=== PATIENT | female | born 1985 | race African-American/Black ===

== ENCOUNTER → 2019-04-04 07:47 | Outpatient (CLI) | payer OTHER, SELFPAY ==
--- NOTE | ~2019-04-04 | US_ITS ---
EXAMINATION: US breast BI limited HISTORY: Six-month follow-up for probably benign bilateral breast masses TECHNIQUE: Limited bilateral breast ultrasound is performed. COMPARISON: 09/20/2018 FINDINGS: Right breast: There is a stable 6 mm x 4 mm oval, circumscribed, parallel, hypoechoic mass with poste rior enhancement and no internal vascularity at the 12:00 location 3 cm from the nipple. There is an 8 mm x 5 mm oval, circumscribed, parallel, hypoechoic mass with posterior enhancement and no internal vascularity at the 1:00 location 1 cm from the nipple which is slightly increased in size. Left breast: There is a stable 5 mm x 3 mm oval, circumscribed, parallel, hypoechoic mass with no pos terior features or internal vascularity at the 4:00 location 4 cm from the nipple. There is a 5 mm x 3 mm oval, circumscribed, parallel, hypoechoic mass with no posterior features or internal vascularit y at the 5:00 location 4 cm from the nipple which is slightly decreased in size. IMPRESSION: Probably benign bilateral breast masses as detailed above. Follow-up bilateral targeted ultrasound in six months is recommended. BI-RADS category 3, probably benign findings. Reviewed, dictated and finalized at location A. TING CLERK
== END ==
PROVIDERS: PCP Family Medicine; Visit Provider Surgery
DX: R92.8 Other abnormal and inconclusive findings on diagnostic imaging of breast (principal)
CPT/HCPCS: 76642

== ENCOUNTER → 2019-10-13 07:52 | Outpatient (CLI) | payer OTHER, SELFPAY ==
--- NOTE | ~2019-10-13 | US_ITS ---
EXAMINATION: US breast BI limited HISTORY: Six-month follow-up for probably benign bilateral breast masses TECHNIQUE: Limited bilateral breast ultrasound was performed. COMPARISON: 04/04/2019, 09/20/2018 FINDINGS: Right breast: The previously described mass at the 12:00 location 3 cm from the nipple is no longer i dentified. There is a stable 7 mm x 6 mm oval, circumscribed, parallel, hypoechoic mass with posterio r acoustic enhancement and no internal vascularity at the 1:00 location 1 cm from the nipple. Left breast: There is a stable 5 mm x 2 mm oval, circumscribed, parallel, hypoechoic mass with no pos terior features or internal vascularity at 4:00 location 4 cm from the nipple. A 4 mm x 3 mm mass wit h similar sonographic features at the 5:00 location 4 cm from the nipple is slightly decreased in siz e. IMPRESSION: Probably benign bilateral breast masses as detailed above. Given interval stability for 12 months, ta rgeted bilateral breast ultrasound in 12 months is recommended. BI-RADS category 3, probably benign findings. Reviewed, dictated and finalized at location A. IMPRESSION: Probably benign bilateral breast masses as detailed above. Given interval stabi lity for 12 months, targeted bilateral breast ultrasound in 12 months is recomm ended. BI-RADS category 3, probably benign findings.
== END ==
PROVIDERS: PCP Family Medicine; Visit Provider Surgery
DX: N63.10 Unspecified lump in the right breast, unspecified quadrant (principal); N63.20 Unspecified lump in the left breast, unspecified quadrant
CPT/HCPCS: 76642

== ENCOUNTER → 2019-12-26 15:24 | Outpatient (CLI) | payer OTHER, SELFPAY ==
--- NOTE | ~2019-12-26 | US_ITS ---
US pelvic complete w TV DATE: 12/26/2019 15:56 INDICATION: Left lower quadrant pain TECHNIQUE: Real-time imaging via transabdominal and transvaginal approaches COMPARISON: None FINDINGS: The uterus measures approximately 6 cm height, 3 cm AP and 5 cm transverse dimension. The right ovary measures 4.3 x 2.6 x 3.7 cm, with evidence of vascular flow. The left ovary measures 3.1 x 2.3 x 2.1 cm, with vascular flow. Small fluid collection in the posterior cul-de-sac. IMPRESSION: No significant abnormality Reviewed, dictated and finalized at Location A. Reviewed, dictated and finalized at location A. RESEARCHER IMPRESSION: No significant abnormality
== END ==
PROVIDERS: PCP Family Medicine; Visit Provider Nurse Practitioner Family
DX: R10.32 Left lower quadrant pain (principal)
CPT/HCPCS: 76830; 76856

== ENCOUNTER 2020-03-12 15:58 | Outpatient (CLI) | payer OTHER, SELFPAY ==
[2020-03-12 18:01] LABS: Hepatitis B Surface Antigen Negative (Negative)
[2020-03-12 18:03] LABS: Hepatitis B Core IgM Result Negative (Negative)
[2020-03-12 18:23] LABS: Hepatitis B Surface Anti Res Positive
[2020-03-15 17:31] LABS: Hepatitis B Core Ab Total Nonreactive (Nonreactive)
== END 2020-03-12 15:59 | disposition home or self-care (01) ==
LOC: ANHLAB 15:59
PROVIDERS: PCP Family Medicine; Visit Provider Nurse Practitioner Obstetrics & Gynecology
DX: Z11.59 Encounter for screening for other viral diseases (principal)
CPT/HCPCS: 36415; 86704; 86705; 86706; 87340

== ENCOUNTER → 2020-04-06 10:27 | Outpatient (CLI) | payer OTHER, SELFPAY ==
--- NOTE | ~2020-04-06 | CT_ITS ---
EXAMINATION: CT abdomen pelvis wo con DATE: 04/06/2020 10:53 INDICATION: Left lower quadrant abdominal pain, periumbilical pain. History of appendectomy. TECHNIQUE: Computed tomography (CT) of the abdomen and pelvis was performed without intravenous contr ast. Automated exposure control and iterative reconstruction technique were employed. Exam dose: 315 .32 mGy-cm total exam DLP. COMPARISON: None. FINDINGS: The lung bases are clear of infiltrate or consolidation. Normal heart size. No pericardial or pleural effusion. The liver, gallbladder, bile ducts, spleen, pancreas, pancreatic duct, and adrenal glands and kidneys are unremarkable on this limited noncontrast examination. The urinary bladder, uterus and adnexal areas are unremarkable. Normal caliber of the abdominal aorta. No intraperitoneal or retroperitoneal or pelvic mass lesion or adenopathy or ascites. The appendix is absent. No bowel obstruction, bowel wall thickening, pneumatosis or intraperitoneal f ree air. Small fat-containing umbilical hernia. Included skeletal structures are unremarkable. IMPRESSION: Status post appendectomy; no significant abnormality Reviewed, dictated and finalized at Location A. Reviewed, dictated and finalized at location B. TRONIC WARFARE OPERATOR
== END ==
PROVIDERS: PCP Family Medicine; Visit Provider Family Medicine
DX: R10.9 Unspecified abdominal pain (principal); Z90.89 Acquired absence of other organs
CPT/HCPCS: 74176

== ENCOUNTER → 2021-02-18 09:02 | Outpatient (CLI) | payer OTHER, SELFPAY ==
[2021-02-18 21:23] LABS: SARS-CoV-2 RNA PCR Negative
== END ==
PROVIDERS: PCP Family Medicine; Visit Provider Nurse Practitioner Family
DX: R09.89 Other specified symptoms and signs involving the circulatory and respiratory systems (principal); Z20.822 Contact with and (suspected) exposure to COVID-19
CPT/HCPCS: C9803; U0003; U0005

== ENCOUNTER 2023-02-11 18:10 | Emergency (ER) | payer OTHER, SELFPAY ==
[2023-02-11 18:12] VITALS: BP 187/115; PULSE 77; RESP 16; TEMP 36.5; O2SAT 100
== END 2023-02-11 18:20 | disposition left against medical advice (07) ==
LOC: ANHED 18:37
PROVIDERS: PCP Family Medicine
DX: R51.9 Headache, unspecified (principal); Z53.21 Procedure and treatment not carried out due to patient leaving prior to being seen by health care provider
CPT/HCPCS: 99199

== ENCOUNTER 2023-02-12 12:24 | Emergency (ER) | payer OTHER, SELFPAY ==
[2023-02-12 12:27] VITALS: BP 154/119; PULSE 80; RESP 16; TEMP 36.6; O2SAT 100
--- NOTE | 2023-02-12 15:25 | PC.NURSE ---
pt seen leaving dept
== END 2023-02-12 15:25 | disposition left against medical advice (07) ==
PROVIDERS: PCP Family Medicine
DX: R51.9 Headache, unspecified (principal)
CPT/HCPCS: 99199

== ENCOUNTER 2023-10-29 11:54 | Outpatient (CLI) | payer OTHER, SELFPAY ==
[2023-10-29] VITALS (9 sets, daily range): BP systolic 139–162; BP diastolic 78–100; PULSE 78–95
[2023-10-29 12:33] LABS: Appearance Urine Clear (Clear); Bilirubin Urine Negative (Negative); Blood Urine Negative (Negative); Color Urine Yellow (Yellow); Glucose Urine UA Negative (Negative); Ketones Urine Negative (Negative); Leukocyte Esterase Ur Trace LEU/UL (Negative); Nitrate Urine Negative (Negative); Protein Urine Negative (Negative); Specific Grav Ur 1.018 (1.001-1.035)
[2023-10-29 12:34] LABS: Add Urine Microscopic? YES; Bacteria Urine None Seen /hpf; Non Pathogenic Casts 0-2; RBC Urine 0-2 /hpf (0-2); Squamous Epithelial Cell Urine None Seen /hpf (Few); WBC Urine 0-5 /hpf (0-3)
[2023-10-29 12:35] LABS: Basophils Absolute Auto 0.1 K/mm3 (0.0-0.1); Basophils Percent Auto 0.7 % (0.2-1.2); Eosinophils Absolute Auto 0.4 K/mm3 (0-0.3); Eosinophils Percent Auto 4.2 % (0-4.4); Hematocrit 34.5 % (37.0-47.0); Hemoglobin 11.4 g/dL (12.0-15.0); Immature Granulocyte Absolute 0.06 K/mm3 (0.00-0.031); Immature Granulocyte Percent A 0.7 % (0-0.5); Lymphocytes Absolute Auto 1.81 K/mm3 (0.9-3.2); Lymphocytes Percent Auto 21.1 % (18.3-44.2); Mean Corpuscular Hemoglobin 31.8 pg (26-34); Mean Corpuscular Volume 96.4 fl (80-100); Mean Platelet Volume 10.8 fl (7.4-10.4); Monocytes Absolute Auto 0.7 K/mm3 (0.1-0.6); Monocytes Percent Auto 7.9 % (2.6-8.5); Neutrophils Absolute Auto 5.6 K/mm3 (1.3-6.7); Neutrophils Percent Auto 65.4 % (45.5-73.1); Platelet Count Result 231 k/mm3 (150-375); Red Blood Count 3.58 M/mm3 (4.2-5.4); Red Cell Distribution Width 13.8 % (11.5-14.5); White Blood Count 8.6 K/mm3 (4.5-10.0)
[2023-10-29 12:47] LABS: Alanine Aminotransferase 15 U/L (6-35); Albumin Level 4.2 g/dL (3.5-5.1); Alkaline Phosphatase 63 U/L (38-126); Anion Gap 8 mmol/L (4-12); Aspartate Amino Transferase 25 U/L (14-36); Bilirubin,Total 0.3 mg/dL (0.2-1.3); Blood Urea Nitrogen 6 mg/dL (7-17); Calcium 9.1 mg/dL (8.4-10.2); Carbon Dioxide 24 mmol/L (22-30); Chloride 102 mmol/L (98-107); Estimated Glomerular Filt Rate > 60; Glucose 77 mg/dL (65-110); Sodium 134 mmol/L (137-145); Uric Acid 2.8 mg/dL (2.5-7.5)
[2023-10-29] MEDS: LABETALOL HCL 100 MG TABLET PO (13:05)
--- NOTE | 2023-10-29 13:36 | PC.NURSE ---
Dr. Gonzalez updated on recent blood pressures and lab results, orders receieved to give 30 Procardia XL.
[2023-10-29] MEDS: NIFEdipine 30 MG TAB.ER.24 PO (13:41)
[2023-10-29 14:07] LABS: Creatinine Urine 129.1 mg/dL
[2023-10-29 14:20] LABS: Total Protein Urine Random < 5 mg/dL; Ur Ttl Prot Creatinine Ratio < 0.04 mg/mg (0-0.20)
--- NOTE | 2023-10-29 14:53 | PC.NURSE ---
Dr. Gonzalez updated on current blood pressures, okay to discharge with 30 XL procardia once a day and increase dose to 200 Labetalol BID. Instructions given on when to return to hospital. FHR doppled in 150s.
== END 2023-10-29 14:50 | disposition home or self-care (01) ==
LOC: ANHOBOP 12:45 → ANHOBPP 12:45
PROVIDERS: PCP Family Medicine; Visit Provider Obstetrics & Gynecology
DX: O13.9 Gestational [pregnancy-induced] hypertension without significant proteinuria, unspecified trimester (principal); Z3A.00 Weeks of gestation of pregnancy not specified
CPT/HCPCS: 36415; 80053; 81001; 82570; 84156; 84550; 85025; 99199; A9270

== ENCOUNTER 2024-02-04 10:34 | Outpatient (CLI) | payer OTHER, SELFPAY ==
[2024-02-04] VITALS (9 sets, daily range): BP systolic 132–165; BP diastolic 81–110; PULSE 74–94
[2024-02-04 11:03] LABS: Basophils Absolute Auto 0.1 K/mm3 (0.0-0.1); Basophils Percent Auto 0.7 % (0.2-1.2); Eosinophils Absolute Auto 0.3 K/mm3 (0-0.3); Hematocrit 34.3 % (37.0-47.0); Hemoglobin 11.8 g/dL (12.0-15.0); Immature Granulocyte Absolute 0.03 K/mm3 (0.00-0.031); Immature Granulocyte Percent A 0.4 % (0-0.5); Lymphocytes Absolute Auto 1.52 K/mm3 (0.9-3.2); Lymphocytes Percent Auto 18.3 % (18.3-44.2); Mean Corpuscular HGB Conc 34.4 g/dl (32-36); Mean Corpuscular Hemoglobin 32.1 pg (26-34); Mean Corpuscular Volume 93.2 fl (80-100); Mean Platelet Volume 10.7 fl (7.4-10.4); Monocytes Absolute Auto 0.5 K/mm3 (0.1-0.6); Monocytes Percent Auto 5.9 % (2.6-8.5); Neutrophils Absolute Auto 5.9 K/mm3 (1.3-6.7); Neutrophils Percent Auto 71.7 % (45.5-73.1); Platelet Count Result 195 k/mm3 (150-375); Red Blood Count 3.68 M/mm3 (4.2-5.4); White Blood Count 8.3 K/mm3 (4.5-10.0)
[2024-02-04 11:12] LABS: Alanine Aminotransferase 14 U/L (6-35); Albumin Level 3.4 g/dL (3.5-5.1); Alkaline Phosphatase 85 U/L (38-126); Anion Gap 5 mmol/L (4-12); Aspartate Amino Transferase 25 U/L (14-36); Bilirubin,Total 0.5 mg/dL (0.2-1.3); Blood Urea Nitrogen 8 mg/dL (7-17); Calcium 8.9 mg/dL (8.4-10.2); Carbon Dioxide 19 mmol/L (22-30); Chloride 109 mmol/L (98-107); Estimated Glomerular Filt Rate > 60; Glucose 116 mg/dL (65-110); Sodium 133 mmol/L (137-145); Uric Acid 6.7 mg/dL (2.5-7.5)
[2024-02-04 11:17] LABS: Add Urine Microscopic? YES; Appearance Urine Cloudy (Clear); Bacteria Urine 4+ /hpf; Bilirubin Urine Negative (Negative); Blood Urine Negative (Negative); Color Urine Yellow (Yellow); Glucose Urine UA Negative (Negative); Ketones Urine Negative (Negative); Leukocyte Esterase Ur Trace LEU/UL (Negative); Need Manual Microscopic Reviewed; Nitrate Urine Negative (Negative); Non Pathogenic Casts 0-2; Protein Urine 1+ mg/dL (Negative); RBC Urine 0-2 /hpf (0-2); Specific Grav Ur 1.008 (1.001-1.035); Squamous Epithelial Cell Urine Occasional /hpf (Few); Urobilinogen Urine 0.2 mg/dL (<2.0); WBC Urine 21-50 /hpf (0-3); pH Urine 6.5 (5.0-9.0)
[2024-02-04] MEDS: NITROFURANTOIN MONOHYD MACROCR 100 MG CAP PO (11:36)
[2024-02-04] MEDS: NIFEdipine 10 MG CAPSULE 20 MG PO (11:36)
[2024-02-04] MEDS: LABETALOL HCL 100 MG TABLET PO (11:36)
[2024-02-04 12:04] LABS: Creatinine Urine 91.5 mg/dL; Total Protein Urine Random 31 mg/dL; Ur Ttl Prot Creatinine Ratio 0.34 mg/mg (0-0.20)
== END 2024-02-04 12:40 | disposition home or self-care (01) ==
LOC: ANHOBOP 10:40 → ANHOBPP 10:42
PROVIDERS: PCP Family Medicine; Visit Provider Obstetrics & Gynecology
DX: O13.9 Gestational [pregnancy-induced] hypertension without significant proteinuria, unspecified trimester (principal); Z3A.00 Weeks of gestation of pregnancy not specified
CPT/HCPCS: 36415; 80053; 81001; 82570; 84156; 84550; 85025; 87086; 99199; A9270

== ENCOUNTER 2024-02-06 09:39 | Outpatient (RCR) | payer OTHER, SELFPAY ==
[2024-02-05] MEDS: BETAMETHASONE SOD PHOS/ACETATE 30 MG/5 ML VIAL 12 MG IM (09:18)
[2024-02-06] MEDS: BETAMETHASONE SOD PHOS/ACETATE 30 MG/5 ML VIAL 12 MG IM (09:47)
== END 2024-05-05 23:59 | disposition home or self-care (01) ==
LOC: ANHOBOP 09:39
PROVIDERS: PCP Family Medicine; Visit Provider Obstetrics & Gynecology
DX: O36.8990 Maternal care for other specified fetal problems, unspecified trimester, not applicable or unspecified (principal); Z3A.00 Weeks of gestation of pregnancy not specified
CPT/HCPCS: 96372; J0702

== ENCOUNTER 2024-02-08 17:50 | Inpatient (IN) | payer OTHER, SELFPAY ==
[2024-02-08] VITALS (101 sets, daily range): BP systolic 146–182; BP diastolic 100–113; PULSE 67–110; RESP 16–18; TEMP 36.2; O2SAT 83–100; BMI 27.4
[2024-02-08 17:38] LABS: Basophils Absolute Auto 0.1 K/mm3 (0.0-0.1); Basophils Percent Auto 0.4 % (0.2-1.2); Eosinophils Absolute Auto 0.1 K/mm3 (0-0.3); Eosinophils Percent Auto 0.5 % (0-4.4); Hematocrit 36.9 % (37.0-47.0); Hemoglobin 12.2 g/dL (12.0-15.0); Immature Granulocyte Absolute 0.24 K/mm3 (0.00-0.031); Immature Granulocyte Percent A 1.9 % (0-0.5); Lymphocytes Absolute Auto 2.23 K/mm3 (0.9-3.2); Lymphocytes Percent Auto 18.1 % (18.3-44.2); Mean Corpuscular HGB Conc 33.1 g/dl (32-36); Mean Corpuscular Hemoglobin 31.4 pg (26-34); Mean Corpuscular Volume 94.9 fl (80-100); Mean Platelet Volume 10.6 fl (7.4-10.4); Monocytes Absolute Auto 1.4 K/mm3 (0.1-0.6); Monocytes Percent Auto 11.6 % (2.6-8.5); Neutrophils Absolute Auto 8.3 K/mm3 (1.3-6.7); Neutrophils Percent Auto 67.5 % (45.5-73.1); Nucleated Red Blood Cells Perc 0.4 % (0.0-0.2); Platelet Count Result 212 k/mm3 (150-375); Red Blood Count 3.89 M/mm3 (4.2-5.4); Red Cell Distribution Width 15.2 % (11.5-14.5); White Blood Count 12.3 K/mm3 (4.5-10.0)
[2024-02-08 17:58] LABS: Alanine Aminotransferase 135 U/L (6-35); Albumin Level 3.7 g/dL (3.5-5.1); Alkaline Phosphatase 93 U/L (38-126); Anion Gap 3 mmol/L (4-12); Aspartate Amino Transferase 115 U/L (14-36); Bilirubin,Total 0.8 mg/dL (0.2-1.3); Blood Urea Nitrogen 10 mg/dL (7-17); Calcium 8.5 mg/dL (8.4-10.2); Carbon Dioxide 25 mmol/L (22-30); Chloride 107 mmol/L (98-107); Estimated CRCL calculation 67 ml/min; Estimated Glomerular Filt Rate > 60; Glucose 74 mg/dL (65-110); Potassium 3.6 mmol/L (3.4-5.0); Sodium 135 mmol/L (137-145); Uric Acid 6.5 mg/dL (2.5-7.5)
[2024-02-08 18:00] LABS: Creatinine Urine 46.1 mg/dL; Total Protein Urine Random 51 mg/dL; Ur Ttl Prot Creatinine Ratio 1.11 mg/mg (0-0.20)
[2024-02-08] MEDS: LABETALOL HCL INJ 100 MG/20 ML VIAL 20 MG IV PUSH ×3 (18:03→22:32)
[2024-02-08] MEDS: LACTATED RINGERS 1,000 ML 75 ML IV CONT (18:10)
[2024-02-08] MEDS: MAGNESIUM SULF 4 GM/WATER100ML 4 GM/100 ML BAG IVPB (18:11)
[2024-02-08 18:14] LABS: Add Urine Microscopic? YES; Appearance Urine Clear (Clear); Bacteria Urine 2+ /hpf; Bilirubin Urine Negative (Negative); Blood Urine Negative (Negative); Color Urine Yellow (Yellow); Glucose Urine UA Negative (Negative); Ketones Urine Negative (Negative); Leukocyte Esterase Ur Negative LEU/UL (Negative); Need Manual Microscopic Reviewed; Nitrate Urine Negative (Negative); Non Pathogenic Casts 0-2; Protein Urine 1+ mg/dL (Negative); RBC Urine 0-2 /hpf (0-2); Specific Grav Ur 1.005 (1.001-1.035); Squamous Epithelial Cell Urine None Seen /hpf (Few); Urobilinogen Urine 0.2 mg/dL (<2.0); WBC Urine 0-5 /hpf (0-3); pH Urine 6.5 (5.0-9.0)
[2024-02-08] MEDS: LABETALOL HCL INJ 100 MG/20 ML VIAL 40 MG IV PUSH ×2 (18:38→22:03)
[2024-02-08] MEDS: MAGNESIUM SULF 20GM/WATER500ML 500 ML 50 MG IV CONT (18:54)
[2024-02-08] MEDS: LABETALOL HCL INJ 100 MG/20 ML VIAL 80 MG IV PUSH (19:40)
--- NOTE | 2024-02-08 20:18 | LDADM ---
This patient, Rajeev Fallon, was admitted to [facility] on 02/08/24 at 19:10. Plans for labor, pain management and were discussed with patient. Patient/family oriented to hospital policies and general routines including ID bracelet, bed and alarms, visiting hours, pain management, procedures, bathroom and other care routines, personal items, smoking policy, room service/diet and guest tray routines, infant security routines, and visiting hours. Patient/Family are encouraged to report perceived risks to care and to ask questions if they do not understand what they are told or what they should do. See OBIX for further documentation.
[2024-02-08] MEDS: miSOPROStol 25 MCG TABLET BUCCAL (21:43)
[2024-02-08 22:25] LABS: HIV 1/2 Ab P24 Ag Result Negative (Negative)
[2024-02-08] MEDS: LABETALOL HCL 100 MG TABLET 400 MG PO (22:42)
[2024-02-08] MEDS: NIFEdipine 30 MG TAB.ER.24 60 MG PO (22:42)
[2024-02-08] MEDS: AMPICILLIN 2 GM/NS 100 ML 2 GM/100 ML BAG IVPB (22:43)
[2024-02-08 22:55] LABS: Rapid Plasma Reagin Non-Reactive (NonReactive)
[2024-02-08 23:14] LABS: Alanine Aminotransferase 128 U/L (6-35); Albumin Level 3.4 g/dL (3.5-5.1); Alkaline Phosphatase 115 U/L (38-126); Anion Gap 2 mmol/L (4-12); Aspartate Amino Transferase 91 U/L (14-36); Bilirubin,Total 0.7 mg/dL (0.2-1.3); Blood Urea Nitrogen 10 mg/dL (7-17); Calcium 7.7 mg/dL (8.4-10.2); Carbon Dioxide 21 mmol/L (22-30); Chloride 108 mmol/L (98-107); Estimated CRCL calculation 93 ml/min; Estimated Glomerular Filt Rate > 60; Glucose 92 mg/dL (65-110); Sodium 131 mmol/L (137-145); Uric Acid 6.4 mg/dL (2.5-7.5)
[2024-02-08 23:21] LABS: Glucose Point of Care 100 mg/dl (65-105)
--- NOTE | 2024-02-08 23:29 | P.HP_ITS ---
H&P: HPI History of Present Illness Date/Time: 02/08/24 23:29 Chief Complaint: term Narrative: This patient is a 38-year-old 1 at 34 weeks gestation with severe range blood pressures and elevated liver enzymes. She has had chronic hypertension through the and now appears to have superimposed preeclampsia. There is reassuring status. She is not tacos. Induction of labor was started with an oral dose of Cytotec. She is stable and not tacos in that regard. Her was also complicated by diet-controlled gestational diabetes. Discussed transfer to [facility]/ [facility] with Dr. Tam. They have accepted the transfer. She will be transferred immediately. Review of Systems Review of Systems: All systems reviewed & are unremarkable except as noted in HPI and below Constitutional: Constitutional: Denies chills, Denies fatigue, Denies fever(s) and Denies weakness Eyes: Eyes: Denies blurry vision, Denies change in vision, Denies loss of peripheral vision, Denies loss of vision, Denies other visual disturbances and Denies eye pain ENT: Denies vertigo, Denies dizziness, Denies hearing loss, Denies mouth pain, Denies nasal obstruction, Denies neck mass and Denies neck pain Cardiovascular: Cardiovascular: Denies chest pain, Denies diaphoresis, Denies syncope, Denies leg edema and Denies dyspnea Respiratory: Respiratory: Denies chest congestion, Denies cough, Denies hemoptysis, Denies dyspnea and Denies wheezing Gastrointestinal: Gastrointestinal: Denies abdominal pain, Denies constipation, Denies diarrhea, Denies nausea and Denies vomiting Genitourinary: Genitourinary: Denies hematuria, Denies change in libido, Denies nocturia, Denies genital lesions, Denies flank pain and Denies urinary urgency Musculoskeletal: Musculoskeletal: Denies abnormal gait, Denies back pain, Denies myalgias, Denies arthralgias, Denies joint swelling, Denies muscle weakness and Denies neck pain Integumentary/Breasts: Skin/Breast: Denies swelling, Denies breast pain, Denies breast mass, Denies dry skin, Denies nipple discharge, Denies unusual bruising and Denies jaundice Neurologic: Denies Neuro-related abnormal movements, Denies Abnormal speech present, Denies abnormal gait, Denies behavioral changes, Denies confusion, Denies vertigo, Denies dizziness, Denies syncope, Denies loss of vision, Denies memory loss, Denies convulsions and Denies weakness Psychiatric: Psychiatric: Denies abnormal sleep pattern, Denies behavioral changes, Denies change in libido, Denies confusion, Denies depression, Denies anhedonia and Denies memory loss Endocrine: Endocrine: Reports no additional endocrine complaints, Denies change in libido and Denies fatigue Hematologic/Lymphatic: Hematologic/Lymphatic: Reports no additional hematologic/lymphatic complaints Allergic/Immunologic: Allergic/Immunologic: Reports no additional allergic/immunologic complaints and Denies wheezing PMFSH Social History Social History Smoking status: Former smoker Do You Feel Safe in your Home?: Yes Lack of Transportation: No Lack of Food: Never True Current Housing: I Have Housing Concerned About Future Housing: No Difficulty Paying Gas/Electric Bills: No Difficulty Paying for Meds: No Currently Unemployed: No Education: Master's Degree or Higher Difficulty w/ Childcare or Family Care: No Spiritual care concerns: No Meds Home Medications and Allergies Home Medications ?Medication ?Instructions ?Recorded ?Confirmed ?Type labetalol 200 mg tablet 400 mg (2 x 200 mg) PO Q12H #60 02/04/24 02/08/24 Rx tabs nifedipine 30 mg tablet,extended 60 mg (2 x 30 mg) PO DAILY #30 tabs 02/04/24 02/08/24 Rx release 24 hr (Procardia XL) nifedipine 30 mg tablet,extended 60 mg (2 x 30 mg) PO DAILY #30 tabs 02/04/24 02/08/24 Rx release 24 hr (Procardia XL) nitrofurantoin 100 mg PO Q12H 7 days #14 caps 02/04/24 02/08/24 Rx monohydrate/macrocrystals 100 mg capsule (Macrobid) valacyclovir 500 mg tablet 500 mg PO Q12H 02/08/24 02/08/24 History Allergies Allergy/AdvReac Type Severity Reaction Status Date / Time No Known Allergies Allergy Verified 02/08/24 21:45 Vital Signs Vital Signs - 24 hr 02/08/24 17:30 02/08/24 17:45 02/08/24 18:00 Temperature Pulse Rate 99 93 93 Respiratory Rate Blood Pressure 177/112 H 166/109 H 182/110 H Pulse Oximetry Oxygen Delivery 02/08/24 18:03 02/08/24 18:15 02/08/24 18:15 Temperature Pulse Rate 91 97 Respiratory Rate 18 Blood Pressure 176/113 H Pulse Oximetry Oxygen Delivery 02/08/24 18:16 02/08/24 18:19 02/08/24 18:21 Temperature Pulse Rate 87 Respiratory Rate Blood Pressure 159/109 H Pulse Oximetry 99 99 Oxygen Delivery 02/08/24 18:26 02/08/24 18:29 02/08/24 18:30 Temperature 97.1 F L Pulse Rate 94 Respiratory Rate Blood Pressure 175/101 H Pulse Oximetry 97 Oxygen Delivery 02/08/24 18:31 02/08/24 18:38 02/08/24 18:43 Temperature Pulse Rate 92 91 Respiratory Rate Blood Pressure 163/102 H Pulse Oximetry 95 Oxygen Delivery 02/08/24 18:45 02/08/24 18:56 02/08/24 19:00 Temperature Pulse Rate 94 89 Respiratory Rate Blood Pressure 146/105 H 155/105 H Pulse Oximetry 99 Oxygen Delivery 02/08/24 19:01 02/08/24 19:06 02/08/24 19:11 Temperature Pulse Rate Respiratory Rate Blood Pressure Pulse Oximetry 99 99 99 Oxygen Delivery 02/08/24 19:15 02/08/24 19:16 02/08/24 19:21 Temperature Pulse Rate 89 Respiratory Rate Blood Pressure 156/108 H Pulse Oximetry 99 99 Oxygen Delivery 02/08/24 19:26 02/08/24 19:30 02/08/24 19:31 Temperature Pulse Rate 103 H Respiratory Rate Blood Pressure 171/109 H Pulse Oximetry 99 99 Oxygen Delivery 02/08/24 19:36 02/08/24 19:40 02/08/24 19:41 Temperature Pulse Rate 94 Respiratory Rate Blood Pressure Pulse Oximetry 100 99 Oxygen Delivery 02/08/24 19:45 02/08/24 19:46 02/08/24 19:51 Temperature Pulse Rate 100 Respiratory Rate Blood Pressure 155/105 H Pulse Oximetry 99 99 Oxygen Delivery 02/08/24 19:56 02/08/24 19:58 02/08/24 20:00 Temperature Pulse Rate 91 Respiratory Rate 16 Blood Pressure 157/101 H Pulse Oximetry 100 Oxygen Delivery 02/08/24 20:01 02/08/24 20:06 02/08/24 20:11 Temperature Pulse Rate Respiratory Rate Blood Pressure Pulse Oximetry 99 99 99 Oxygen Delivery 02/08/24 20:15 02/08/24 20:16 02/08/24 20:18 Temperature Pulse Rate 94 Respiratory Rate Blood Pressure 153/101 H Pulse Oximetry 99 Oxygen Delivery Room Air 02/08/24 20:21 02/08/24 20:26 02/08/24 20:30 Temperature Pulse Rate 87 Respiratory Rate Blood Pressure 157/100 H Pulse Oximetry 99 100 Oxygen Delivery 02/08/24 20:31 02/08/24 20:36 02/08/24 20:41 Temperature Pulse Rate Respiratory Rate Blood Pressure Pulse Oximetry 99 99 99 Oxygen Delivery 02/08/24 20:45 02/08/24 20:46 02/08/24 20:51 Temperature Pulse Rate 87 Respiratory Rate Blood Pressure 149/100 H Pulse Oximetry 99 100 Oxygen Delivery 02/08/24 20:56 02/08/24 21:00 02/08/24 21:01 Temperature Pulse Rate 89 Respiratory Rate Blood Pressure 162/104 H Pulse Oximetry 99 99 Oxygen Delivery 02/08/24 21:03 02/08/24 21:06 02/08/24 21:11 Temperature Pulse Rate 87 Respiratory Rate Blood Pressure 155/100 H Pulse Oximetry 99 99 Oxygen Delivery 02/08/24 21:15 02/08/24 21:16 02/08/24 21:21 Temperature Pulse Rate 85 Respiratory Rate Blood Pressure 158/101 H Pulse Oximetry 99 99 Oxygen Delivery 02/08/24 21:36 02/08/24 21:41 02/08/24 21:45 Temperature Pulse Rate 94 88 Respiratory Rate Blood Pressure 167/113 H 160/113 H Pulse Oximetry 98 99 Oxygen Delivery 02/08/24 21:46 02/08/24 21:51 02/08/24 21:51 Temperature Pulse Rate 88 Respiratory Rate Blood Pressure Pulse Oximetry 99 100 Oxygen Delivery 02/08/24 21:56 02/08/24 22:00 02/08/24 22:00 Temperature Pulse Rate 89 Respiratory Rate 16 Blood Pressure Pulse Oximetry 99 Oxygen Delivery 02/08/24 22:01 02/08/24 22:02 02/08/24 22:03 Temperature Pulse Rate 88 85 Respiratory Rate Blood Pressure 162/111 H Pulse Oximetry 100 Oxygen Delivery 02/08/24 22:06 02/08/24 22:11 02/08/24 22:15 Temperature Pulse Rate 84 Respiratory Rate Blood Pressure 158/106 H Pulse Oximetry 99 100 Oxygen Delivery 02/08/24 22:16 02/08/24 22:19 02/08/24 22:24 Temperature Pulse Rate Respiratory Rate Blood Pressure Pulse Oximetry 99 99 99 Oxygen Delivery 02/08/24 22:29 02/08/24 22:30 02/08/24 22:32 Temperature Pulse Rate 83 80 Respiratory Rate Blood Pressure 162/109 H Pulse Oximetry 100 Oxygen Delivery 02/08/24 22:34 02/08/24 22:39 02/08/24 22:42 Temperature Pulse Rate 87 Respiratory Rate Blood Pressure Pulse Oximetry 98 99 Oxygen Delivery 02/08/24 22:44 02/08/24 22:45 02/08/24 22:49 Temperature Pulse Rate 86 Respiratory Rate Blood Pressure 154/102 H Pulse Oximetry 100 99 Oxygen Delivery 02/08/24 22:54 02/08/24 22:59 02/08/24 23:00 Temperature Pulse Rate 83 Respiratory Rate Blood Pressure 156/106 H Pulse Oximetry 99 99 Oxygen Delivery 02/08/24 23:04 02/08/24 23:09 02/08/24 23:14 Temperature Pulse Rate Respiratory Rate Blood Pressure Pulse Oximetry 98 99 98 Oxygen Delivery 02/08/24 23:15 02/08/24 23:19 02/08/24 23:24 Temperature Pulse Rate 83 Respiratory Rate Blood Pressure 164/104 H Pulse Oximetry 98 99 Oxygen Delivery Exam Const: General: cooperative, healthy appearing, comfortable and no acute distress Orientation/consciousness: oriented to person, oriented to place and oriented to time HENMT: Head: normal to inspection Ears: external ears normal Face/Nose/Sinus: Normal external nose present and normal facial exam Face and sinus: normal facial exam Eyes: General: appearance normal, both eyes and all related structures Neck: Neck: normal visual inspection, trachea midline and supple Resp: Auscultation: clear to auscultation bilaterally, no crackles, no rales, no rhonchi and no wheezes Cardio: Rate: regular rate Rhythm: regular rhythm Heart sounds: no click, no murmurs and no rubs GI: GI Palp: No abdominal tenderness, No Soft to palpation, No Tenderness to palpation present (GI) and No Palpable mass present Auscultation: normal ramirez wel sounds Skin: General skin exam: normal color and no rashes or lesions noted Neuro: General: oriented to person, oriented to place and oriented to time Extrem: General: normal to inspection, no joint enlargement, no clubbing, cyanosis or edema, no pedal edema and no calf tenderness Psych: Appearance: grossly normal Mental Status: mental status grossly normal Speech and movement: Normal speech and movement present H&P: Results Labs Labs: Short CBC 02/08/24 Range/Units 17:17 WBC 12.3 H (4.5-10.0) K/mm3 Hgb 12.2 (12.0-15.0) g/dL Hct 36.9 L (37.0-47.0) % Plt Count 212 (150-375) k/mm3 BMP 02/08/24 02/08/24 17:17 22:48 Sodium 135 L 131 L Potassium 3.6 4.0 Chloride 107 108 H Carbon Dioxide 25 21 L BUN 10 10 Creatinine 1.00 0.70 Glucose 74 92 Calcium 8.5 7.7 L Liver Function 02/08/24 02/08/24 Range/Units 17:17 22:48 Total Bilirubin 0.8 0.7 (0.2-1.3) mg/dL AST 115 H 91 H (14-36) U/L ALT 135 H 128 H (6-35) U/L Alkaline Phosphatase 93 115 (38-126) U/L Albumin 3.7 3.4 L (3.5-5.1) g/dL Urine 02/08/24 Range/Units 17:17 Urine Color Yellow (Yellow) Urine Appearance Clear (Clear) Urine pH 6.5 (5.0-9.0) Ur Specific [place] 1.005 (1.001-1.035) Urine Protein 1+ H (Negative) mg/dL Urine Glucose (UA) Negative (Negative) mg/dL Assessment and Plan Assessment and plan (1) Preeclampsia, severe: Code(s): O14.10 - Severe pre-eclampsia, unspecified trimester Status: Acute (2) Gestational diabetes: Code(s): O24.419 - Gestational diabetes mellitus in , unspecified control Status: Acute Plan This patient is a 38-year-old 1 at 34 weeks gestation with severe range blood pressures and elevated liver enzymes. She has had chronic hypertension through the and now appears to have superimposed preeclampsia. There is reassuring status. She is not tacos. Induction of labor was started with an oral dose of Cytotec. She is stable and not tacos in that regard. Her was also complicated by diet-controlled gestational diabetes. Discussed transfer to [facility]/ [facility] with Dr. Tam. They have accepted the transfer. She will be transferred immediately.
[2024-02-08] MEDS: ONDANSETRON INJ 4 MG/2 ML VIAL IV PUSH (23:35)
[2024-02-09] VITALS (21 sets, daily range): BP systolic 153–165; BP diastolic 100–110; PULSE 72–97; O2SAT 96–100
--- NOTE | 2024-02-09 01:25 | PC.NURSE ---
Pt transferred to [facility] via [facility] ambulance.
== END 2024-02-09 01:25 | disposition other institution (70) | DRG 998 ==
LOC: ANHOBOP 18:40 → ANHOBPP 18:40
PROVIDERS: Admitting Provider Obstetrics & Gynecology; PCP Family Medicine; Visit Provider Obstetrics & Gynecology
DX: O14.14 Severe pre-eclampsia complicating childbirth (principal); Z3A.34 34 weeks gestation of pregnancy; O24.420 Gestational diabetes mellitus in childbirth, diet controlled
CPT/HCPCS: 36415; 80053; 81001; 82570; 82948; 84156; 84550; 85025; 86592; 86703; 86850; 86900; 86901; A9270; G0378; G0432; J0290; J2405; J3475; J7120